=== PATIENT | male | born 1945 | race Caucasian/White ===

== ENCOUNTER 2018-03-14 17:55 | Observation (INO) ==
[2018-03-14] MEDS ORDERED: Iohexol 350 MG/ML 100 ML Vial (for Cath Lab) IVCONTRAST ONE (21:54)
[2018-03-14] MEDS ORDERED: Iohexol 350 MG/ML 50 ML Vial (for Cath Lab) IVCONTRAST ONE (21:54)
[2018-03-15 01:03] LABS: Troponin I 0.29 ng/mL (0.02-0.05)
[2018-03-15 07:15] LABS: Troponin I 1.54 ng/mL (0.02-0.05)
[2018-03-15] MEDS ORDERED: Sod Chloride 0.9% Inj 1,000 ML IV.SIG ONE (07:25)
[2018-03-15] MEDS ORDERED: Heparin 10,000 UNITS/10 ML Vial (for IV use) IV.PUSH STA (07:33)
[2018-03-15 08:13] LABS: Hematocrit 45.5 % (39.0-51.0); Mean Corpuscular HGB Conc 35.1 % (32.0-36.0); Mean Corpuscular Hemoglobin 32.3 pg (27.0-34.0); Mean Corpuscular Volume 92.1 fL (80.0-100.0); Mean Platelet Volume 8.3 fL (7.0-11.0); Platelet Count 155 th/mm3 (150-450); Red Blood Count 4.94 mil/mm3 (4.50-5.90); Red Cell Distribution Width 13.9 % (11.6-17.2); White Blood Count 8.2 th/mm3 (4.0-11.0)
[2018-03-15] MEDS: Aspirin 325 MG Tablet PO SCH (08:31)
[2018-03-15] MEDS: Metoprolol Tartrate 25 MG Tablet PO SCH ×2 (08:32→21:20)
[2018-03-15 08:43] LABS: Activated Partial Thrombo Time 27.4 sec (24.3-30.1); INR 1.1 Ratio
[2018-03-15] MEDS: Heparin Drip 25,000 UNIT/250 ML BAG IV.CONT PRN (09:30)
[2018-03-15 12:13] LABS: Chol/HDL Ratio 2.97 Ratio
[2018-03-15] MEDS: Sod Chloride 0.9% Inj 1,000 ML IV.CONT SCH ×2 (12:16→19:51)
[2018-03-15] MEDS ORDERED: Heparin 10,000 UNITS/10 ML Vial (for IV use) IV.PUSH PRN ×2 (13:33)
--- NOTE | 2018-03-15 16:15 | ECG ---
Date Performed: 03/15/2018 Time Performed: 00:11:46 PTAGE: 72 years EKG: Sinus rhythm WITH OCCASIONAL VENTRICULAR PREMATURE COMPLEXES Since the previous tracing, no significant change no kimberly BORDERLINE ECG NO PREVIOUS TRACING DOCTOR: Germán Miranda Interpretating Date/Time 03/15/2018 16:13:11
--- NOTE | 2018-03-15 16:16 | ECG ---
Date Performed: 03/15/2018 Time Performed: 05:37:24 PTAGE: 72 years EKG: SINUS BRADYCARDIA Since the previous tracing, no significant change noted BORDERLINE ECG PREVIOUS TRACING : 03/15/2018 00.11 DOCTOR: Germán Miranda Interpretating Date/Time 03/15/2018 16:13:21
--- NOTE | 2018-03-15 16:57 | P.HPIM ---
History of Present Illness Primary Care Physician: Jalen Osorio MD Chief Complaint: Chest pain History of Present Illness: Mt. Zimmerman is a 72 y/o male with hypertension and hypothyroidism. He presented [place] [facility] [place] with complaints of acute onset chest pain that started 45 minutes prior to arrival in the ER while carrying some shingles onto a roof. His chest pain was described as a pressure-like sensation in the mid chest and radiated to the left arm associated with left arm numbness and tingling, which lasted for about 15-20 minutes. He reported some diaphoresis but he was already sweating from working outside. When the pain occurred and noted that he took a break for a while and the pain lessened but did not completely go away until he arrived to the ED but it was gone completely before he received any medications in the ED. No previous hx of cardiac issues. Denies any cough or shortness of breath, no fever chills or night sweats. In the ED in he had serial CE checked which noted an elevation in his troponin from 0.29 to 1.54. Pt was started on Nitro ointment and Heparin gtt and transferred to [facility] for Cardiac consultation. Pt had ASA, Lipitor, and Metoprolol added to his regimen. Past Medical Hx: Asthma HTN CKD, stage 3 Hypothyroidism Past Surgical Hx: Spinal surgery after a fall many years ago Family Hx: Noncontributory Social Hx: Denies any tobacco use Rare alcohol or illicit drug use Pt uses CBD oil for joint pain Pt worked in construction - Diagnosis (1) Chest pain (2) Elevated troponin (3) HTN (hypertension) (4) Hypothyroidism Review of Systems Constitutional: Denies chills, Denies fever(s) Eyes: Denies double vision, Denies loss of vision Ears, Nose, Mouth, and Throat: Denies dizziness, Denies nasal congestion Cardiovascular: Reports chest pain, Denies rapid, pounding, or irregular heartbeat, Denies shortness of breath Respiratory: Denies chest congestion, Denies cough Gastrointestinal: Denies abdominal pain, Denies loose stools, Denies nausea, Denies vomiting Genitourinary: Denies urinary frequency, Denies urinary incontinence Musculoskeletal: Denies back pain Skin/Breast: Denies rash Neurologic: Denies confusion, Denies dizziness, Denies tingling/numbness/ burning sensations PMFSH - History History Provided By: Patient - Medical History Medical History: Medical History (Last Updated 03/14/18 @ 18:10 by Kathryn Aggarwal RN) Hypertension Hypothyroidism - Surgical History Surgical History: Surgical History (Last Updated 03/14/18 @ 18:10 by Kathryn Aggarwal RN) History of back surgery - Tobacco History Second Hand Smoke Exposure: No Smoking Status: Never smoker - Alcohol History How Often Do You Have a Drink Containing Alcohol: Never - Substance Use History Substance History: No History of Abuse Medications and Allergies Allergies Allergy/AdvReac Type Severity Reaction Status Date / Time No Known Allergies Allergy Unverified 03/14/18 18:05 Home Medications Medication Instructions Recorded Confirmed Type levothyroxine [Synthroid] 175 mcg PO DAILY 03/14/18 03/15/18 History losartan 25 mg PO DAILY 03/15/18 03/15/18 History Active Medications: Active Medications Aspirin (Aspirin) 325 mg PO DAILY [facility] Last Admin: 03/15/18 08:31 Dose: 325 mg Atorvastatin Calcium (Lipitor) 20 mg PO DAILY [facility] Last Admin: 03/15/18 08:31 Dose: 20 mg Heparin Sodium (Porcine) (Heparin Inj) 2,500 units IV.PUSH UNSCH PRN PRN Reason: aPTT 25-39 Heparin Sodium (Porcine) (Heparin Inj) 5,000 units IV.PUSH UNSCH PRN PRN Reason: aPTT < 25 Sodium Chloride (Ns Inj) 1,000 mls @ 100 mls/hr IV.CONT .Q10H [facility] Last Admin: 03/15/18 12:16 Dose: 100 mls/hr Heparin Sodium/Dextrose (Heparin/D5w 25,000 U/250 Ml) 25,000 unit in 250 mls @ 0 mls/hr IV.CONT TITRATE PRN; Protocol PRN Reason: Per Protocol Last Admin: 03/15/18 09:30 Dose: 12 units/hr, 0.12 mls/hr Levothyroxine Sodium (Synthroid) 100 mcg PO DAILY@0600 [facility] Levothyroxine Sodium (Synthroid) 75 mcg PO DAILY@0600 [facility] Metoprolol Tartrate (Lopressor) 12.5 mg PO BID [facility] Last Admin: 03/15/18 08:32 Dose: Not Given Nitroglycerin (Nitro-Bid 2% Oint) 0.5 inch TOPICAL Q6HR [facility] Last Admin: 03/15/18 12:19 Dose: 0.5 inch Ondansetron HCl (Zofran Inj) 4 mg IV.PUSH Q6H PRN PRN Reason: NAUSEA OR VOMITING Exam Vital signs: Vital Signs 03/15/18 00:00 03/15/18 08:00 03/15/18 11:16 Temperature 96.2 F L 97.2 F L 98.0 F Pulse Rate 58 L 47 L 50 L Respiratory Rate 18 18 18 Blood Pressure 127/68 137/58 L 154/75 H Pulse Oximetry 96 100 97 03/15/18 12:00 03/15/18 15:27 Temperature 98.8 F 98.2 F Pulse Rate 51 L Respiratory Rate 18 18 Blood Pressure 164/73 H 129/76 Pulse Oximetry 97 98 Intake & Output 03/14/18 03/15/18 03/15/18 18:59 06:59 18:59 Intake Total 480 / 480 Output Total 350 / 350 200 / 200 Balance 130 / 130 -200 / -200 Weight 103.9 kg Intake: Oral 480 / 480 Output: Urine 350 / 350 200 / 200 Narrative: GENERAL: NAD, AAOx3 SKIN: Warm and dry. HEENT: Atraumatic. Normocephalic. Pupils equal and round. No scleral icterus. No injection or drainage. No nasal bleeding or discharge. Mucous membranes pink and moist. NECK: Trachea midline. No JVD. CARDIO: Regular rate and rhythm. RESP: No accessory muscle use. Clear to auscultation. Breath sounds equal bilaterally. ABD: Abdomen soft, non-tender, nondistended. Hepatic and splenic margins not palpable. EXT: Extremities without clubbing, cyanosis, or edema. No obvious deformities. NEURO: Awake and alert. No obvious cranial nerve deficits. Motor grossly within normal limits. Five out of 5 muscle strength in the arms and legs. Normal speech. PSYCHIATRIC: Appropriate mood and affect; insight and judgment normal. Results - Labs CBC & Chem 7: 03/17/18 04:30 03/16/18 05:59 Labs: Short CBC 03/15/18 Range/Units 06:30 WBC 8.2 (4.0-11.0) th/mm3 Hgb 16.0 (13.0-17.0) gm/dL Hct 45.5 (39.0-51.0) % Plt Count 155 (150-450) th/mm3 Cardiac Enzymes 03/15/18 03/15/18 Range/Units 00:32 06:30 Total Creatine Kinase 141 189 (39-308) U/L Troponin I 0.29 H 1.54 H* (0.02-0.05) ng/mL Caprini VTE Risk Assessment Caprini VTE Risk Assessment: Moderate/High Risk (score >= 2) Caprini Risk Assessment Model: Point Value = 1 Point Value = 2 Point Value = 3 Point Value = 5 Age 41-60 Minor surgery BMI > 25 kg/m2 Swollen legs Varicose veins or History of unexplained or recurrent spontaneous Oral contraceptives or hormone replacement Sepsis (< 1 month) Serious lung disease, including pneumonia (< 1 month) Abnormal pulmonary function Acute myocardial infarction Congestive heart failure (< 1 month) History of inflammatory bowel disease Medical patient at bed rest Age 61-74 Arthroscopic surgery Major open surgery (> 45 min) Laparoscopic surgery (> 45 min) Malignancy Confined to bed (> 72 hours) Immobilizing plaster cast Central venous access Age >= 75 History of VTE Family history of VTE Factor V Leiden Prothrombin [id number] Lupus anticoagulant Anticardiolipin antibodies Elevated serum homocysteine Heparin-induced thrombocytopenia Other congenital or acquired thrombophilia Stroke (< 1 month) Elective arthroplasty Hip, pelvis, or leg fracture Acute spinal cord injury (< 1 month) Prophylaxis Regimen: Total Risk Factor Score Risk Level Prophylaxis Regimen 0-1 Low Early ambulation 2 Moderate Order ONE of the following: *Sequential Compression Device (SCD) *Heparin 5000 units SQ BID 3-4 Higher Order ONE of the following medications: *Heparin 5000 units SQ TID *Enoxaparin/Lovenox 40 mg SQ daily (WT < 150 kg, CrCl > 30 mL/min) *Enoxaparin/Lovenox 30 mg SQ daily (WT < 150 kg, CrCl > 10-29 mL/min) *Enoxaparin/Lovenox 30 mg SQ BID (WT < 150 kg, CrCl > 30 mL/min) AND/OR *Sequential Compression Device (SCD) 5 or more Highest Order ONE of the following medications: *Heparin 5000 units SQ TID (Preferred with Epidurals) *Enoxaparin/Lovenox 40 mg SQ daily (WT < 150 kg, CrCl > 30 mL/min) *Enoxaparin/Lovenox 30 mg SQ daily (WT < 150 kg, CrCl > 10-29 mL/min) *Enoxaparin/Lovenox 30 mg SQ BID (WT < 150 kg, CrCl > 30 mL/min) AND *Sequential Compression Device (SCD) Assessment and Plan - Assessment (1) Chest pain Code(s): R07.9 - Chest pain, unspecified Status: Acute Plan: Chest pain Elevated troponin - Pt is a 72 y/o male with hypertension and hypothyroidism. - He presented to the ED [place] [facility] [place] with complaints of acute onset chest pain that started 45 minutes prior to arrival in the ER while carrying some shingles onto a roof. His chest pain was described as a pressure-like sensation in the mid chest and radiated to the left arm associated with left arm numbness and tingling, which lasted for about 15-20 minutes. He reported some diaphoresis but he was already sweating from working outside. When the pain occurred and noted that he took a break for a while and the pain lessened but did not completely go away until he arrived to the ED but it was gone completely before he received any medications in the ED. No previous hx of cardiac issues. - In the ED in he had serial CE checked which noted an elevation in his troponin from 0.29 to 1.54. - Pt was started on Nitro ointment and Heparin gtt and transferred to [facility] for Cardiac consultation. - Pt had ASA, Lipitor, and Metoprolol added to his regimen. - Cardiology is consulted and pt is planned for [facility] tomorrow - Check lipid panel and labs in AM - Telemetry - NPO after MN - Supportive care - Further recommendations as the case develops HTN - Home med held - Pt started on a BB - Monitor Hypothyroidism - Home meds resumed (2) Elevated troponin Code(s): R74.8 - Abnormal levels of other serum enzymes Status: Acute (3) HTN (hypertension) Code(s): I10 - Essential (primary) hypertension Status: Acute (4) Hypothyroidism Code(s): E03.9 - Hypothyroidism, unspecified Status: Acute - Attending Attestation Patient examined. Assessment and plan formulated with Bri Qureshi PA-C. I agree with the above. H&P: Quality - VTE Deep Vein Thrombosis/Pulmonary Embolism Present on Admission: No
[2018-03-15] MEDS ORDERED: Acetaminophen 325 MG Tablet PO PRN (21:37)
[2018-03-16] MEDS: Levothyroxine 100 MCG Tablet PO SCH (05:49)
[2018-03-16] MEDS: Levothyroxine 75 MCG Tablet PO SCH (05:50)
[2018-03-16] MEDS: Heparin Drip 25,000 UNIT/250 ML BAG IV.CONT PRN (05:55)
[2018-03-16 06:50] LABS: Baso % (Auto) 0.3 % (0.0-2.0); Eos # (Auto) 0.2 th/mm3 (0.0-0.4); Eos % (Auto) 2.4 % (0.0-4.0); Hematocrit 45.6 % (39.0-51.0); Hemoglobin 15.8 gm/dL (13.0-17.0); Lymph # (Auto) 2.9 th/mm3 (1.0-4.8); Mean Corpuscular HGB Conc 34.7 % (32.0-36.0); Mean Corpuscular Hemoglobin 32.2 pg (27.0-34.0); Mean Corpuscular Volume 92.7 fL (80.0-100.0); Mean Platelet Volume 7.5 fL (7.0-11.0); Mono # (Auto) 0.5 th/mm3 (0.0-0.9); Mono % (Auto) 5.8 % (0.0-8.0); Neut # (Auto) 5.3 th/mm3 (1.8-7.7); Neut % (Auto) 59.5 % (16.0-70.0); Platelet Count 132 th/mm3 (150-450); Red Blood Count 4.92 mil/mm3 (4.50-5.90); Red Cell Distribution Width 14.3 % (11.6-17.2); White Blood Count 8.9 th/mm3 (4.0-11.0)
[2018-03-16 07:21] LABS: Anion Gap 7 meq/L (5-15); Aspartate Aminotransferase 28 U/L (15-37); Blood Urea Nitrogen 12 mg/dL (7-18); Calcium 7.6 mg/dL (8.5-10.1); Carbon Dioxide 25.9 meq/L (21.0-32.0); Chloride 110 meq/L (98-107); Cholesterol 148 mg/dL (120-200); Glomerular Filtration Rate 58 mL/min (>89); Glucose,Random 93 mg/dL (74-106); Potassium 4.2 meq/L (3.5-5.1); Sodium 143 meq/L (136-145); Triglycerides 118 mg/dL (42-150)
[2018-03-16 07:24] LABS: Alanine Aminotransferase 40 U/L (12-78); Alkaline Phosphatase 47 U/L (45-117); Chol/HDL Ratio 4.39 Ratio; HDL Cholesterol 33.7 mg/dL (40.0-60.0); LDL Cholesterol,Calculated 91 mg/dL (0-99); Total Protein 6.9 g/dL (6.4-8.2)
--- NOTE | 2018-03-16 07:42 | P.CONCA ---
History of Present Illness Primary Care Provider: Jalen Osorio MD Family Provider: Jalen Osorio MD Chief Complaint: Chest pain History of Present Illness: 72-year-old male with past medical history of HTN, hypothyroidism who presented for chest pain. The patient states that he was working in the yard and around the house doing heavy lifting lifting some shingles. He developed midsternal chest pain that radiated to his left arm with numbness and tingling. Lasted 15 20 minutes and did not go away completely rest so he presented to the ED. EKG did not demonstrate any ischemic changes. Troponin 0.02->0.29->1.54. Patient started on heparin GTT and transferred to [facility]. Review of Systems All other systems reviewed negative except as stated in [facility] - History History Provided By: Patient - Medical History Medical History: Medical History (Last Updated 03/14/18 @ 18:10 by Kathryn Aggarwal RN) Hypertension Hypothyroidism - Surgical History Surgical History: Surgical History (Last Updated 03/14/18 @ 18:10 by Kathryn Aggarwal RN) History of back surgery - Tobacco History Second Hand Smoke Exposure: No Smoking Status: Never smoker - Alcohol History How Often Do You Have a Drink Containing Alcohol: Never - Substance Use History Substance History: No History of Abuse Medications and Allergies Allergies Allergy/AdvReac Type Severity Reaction Status Date / Time No Known Allergies Allergy Unverified 03/14/18 18:05 Home Medications Medication Instructions Recorded Confirmed Type levothyroxine [Synthroid] 175 mcg PO DAILY 03/14/18 03/15/18 History losartan 25 mg PO DAILY 03/15/18 03/15/18 History Active Medications: Active Medications Acetaminophen (Tylenol) 650 mg PO Q6H PRN PRN Reason: MILD PAIN (PAIN SCALE 1 TO 5) Aspirin (Aspirin) 325 mg PO DAILY [facility] Last Admin: 03/15/18 08:31 Dose: 325 mg Atorvastatin Calcium (Lipitor) 20 mg PO DAILY [facility] Last Admin: 03/15/18 08:31 Dose: 20 mg Heparin Sodium (Porcine) (Heparin Inj) 2,500 units IV.PUSH UNSCH PRN PRN Reason: aPTT 25-39 Heparin Sodium (Porcine) (Heparin Inj) 5,000 units IV.PUSH UNSCH PRN PRN Reason: aPTT < 25 Sodium Chloride (Ns Inj) 1,000 mls @ 100 mls/hr IV.CONT .Q10H [facility] Last Infusion: 03/16/18 03:39 Dose: Infused Heparin Sodium/Dextrose (Heparin/D5w 25,000 U/250 Ml) 25,000 unit in 250 mls @ 0 mls/hr IV.CONT TITRATE PRN; Protocol PRN Reason: Per Protocol Last Admin: 03/16/18 05:55 Dose: 12 units/hr, 0.12 mls/hr Levothyroxine Sodium (Synthroid) 100 mcg PO DAILY@0600 [facility] Last Admin: 03/16/18 05:49 Dose: 100 mcg Levothyroxine Sodium (Synthroid) 75 mcg PO DAILY@0600 [facility] Last Admin: 03/16/18 05:50 Dose: 75 mcg Metoprolol Tartrate (Lopressor) 12.5 mg PO BID [facility] Last Admin: 03/15/18 21:20 Dose: 12.5 mg Nitroglycerin (Nitro-Bid 2% Oint) 0.5 inch TOPICAL Q6HR [facility] Last Admin: 03/16/18 05:44 Dose: 0.5 inch Ondansetron HCl (Zofran Inj) 4 mg IV.PUSH Q6H PRN PRN Reason: NAUSEA OR VOMITING Last Admin: 03/15/18 21:20 Dose: 4 mg Exam Vital signs: Vital Signs 03/15/18 08:00 03/15/18 11:16 03/15/18 12:00 Temperature 97.2 F L 98.0 F 98.8 F Pulse Rate 47 L 50 L Respiratory Rate 18 18 18 Blood Pressure 137/58 L 154/75 H 164/73 H Pulse Oximetry 100 97 97 03/15/18 13:00 03/15/18 15:27 03/15/18 16:20 Temperature 98.2 F Pulse Rate 49 L 51 L 45 L Respiratory Rate 18 Blood Pressure 129/76 Pulse Oximetry 98 03/15/18 20:00 03/15/18 23:53 03/16/18 01:32 Temperature 98.7 F Pulse Rate 81 51 L 54 L Respiratory Rate 19 19 Blood Pressure 162/82 H 171/74 H Pulse Oximetry 98 98 03/16/18 04:00 Temperature Pulse Rate 53 L Respiratory Rate 22 Blood Pressure 149/70 H Pulse Oximetry 98 Intake & Output 03/15/18 03/16/18 03/16/18 18:59 06:59 18:59 Intake Total 240 / 240 2610 / 2610 Output Total 200 / 200 600 / 600 Balance 40 / 40 2009 Weight 229 lb 4.492 oz Intake: IV 2250 / 2250 Heparin/D5W 25,000 U/250 mL 25, 250 / 250 000 unit In 250 ml @ Per Protocol IV.CONT TITRATE PRN Rx #:[id number] NS Inj 1,000 ML @ 100 mls/hr IV 1000 / 1000 .CONT .Q10H [facility] Rx#:[id number] Oral 240 / 240 360 / 360 Output: Urine 200 / 200 600 / 600 Other: # Voids 1 Narrative: GENERAL: Well-developed well-nourished. In no acute distress. NECK: No carotid bruits. No JVD. CARDIOVASCULAR: Regular rate and rhythm. No murmur appreciated. RESPIRATORY: No accessory muscle use. Clear to auscultation. Breath sounds equal bilaterally. MUSCULOSKELETAL: No clubbing or cyanosis. No edema. NEUROLOGICAL: Awake and alert. Normal speech. Results 03/16/18 05:59 03/16/18 05:59 Cardiac Enzymes 03/16/18 Range/Units 05:59 AST 28 (15-37) U/L Coagulation 03/15/18 03/15/18 03/15/18 Range/Units 08:00 17:20 22:34 PT 11.0 (9.8-11.6) sec APTT 27.4 48.3 H D 47.8 H (24.3-30.1) sec 03/16/18 Range/Units 05:59 PT (9.8-11.6) sec APTT 57.5 H D (24.3-30.1) sec Lipids 03/15/18 03/16/18 Range/Units 11:35 05:59 Triglycerides 92 118 (42-150) mg/dL Cholesterol 107 L 148 (120-200) mg/dL HDL Cholesterol 36.0 L 33.7 L (40.0-60.0) mg/dL Cholesterol/HDL Ratio 2.97 4.39 Ratio CBC 03/15/18 03/16/18 Range/Units 06:30 05:59 WBC 8.2 8.9 (4.0-11.0) th/mm3 RBC 4.94 4.92 (4.50-5.90) mil/mm3 Hgb 16.0 15.8 (13.0-17.0) gm/dL Hct 45.5 45.6 (39.0-51.0) % Plt Count 155 132 L (150-450) th/mm3 Neut # (Auto) 5.3 (1.8-7.7) th/mm3 Lymph # (Auto) 2.9 (1.0-4.8) th/mm3 [place] # (Auto) 0.5 (0.0-0.9) th/mm3 Eos # (Auto) 0.2 (0.0-0.4) th/mm3 Baso # (Auto) 0.0 (0.0-0.2) th/mm3 Comprehensive Metabolic Panel 03/16/18 Range/Units 05:59 Sodium 143 (136-145) meq/L Potassium 4.2 (3.5-5.1) meq/L Chloride 110 H (98-107) meq/L Carbon Dioxide 25.9 (21.0-32.0) meq/L BUN 12 (7-18) mg/dL Creatinine 1.23 (0.60-1.30) mg/dL Calcium 7.6 L D (8.5-10.1) mg/dL AST 28 (15-37) U/L ALT 40 (12-78) U/L Alkaline Phosphatase 47 (45-117) U/L Total Protein 6.9 D (6.4-8.2) g/dL Albumin 3.0 L D (3.4-5.0) g/dL Intake and Output 03/15/18 03/16/18 03/16/18 22:59 06:59 14:59 Intake Total 1360 / 1360 1250 / 1250 Output Total 300 / 300 300 / 300 Balance 1060 / 1060 950 / 950 Intake: IV 1000 / 1000 1250 / 1250 Heparin/D5W 25,000 U/250 mL 25, 250 / 250 000 unit In 250 ml @ Per Protocol IV.CONT TITRATE PRN Rx #:[id number] NS Inj 1,000 ML @ 100 mls/hr IV 1000 / 1000 .CONT .Q10H [facility] Rx#:[id number] Oral 360 / 360 Output: Urine 300 / 300 300 / 300 Other: # Voids 1 Weight 229 lb 4.492 oz Assessment and Plan - Plan 72-year-old male with past medical history of HTN, hypothyroidism who presented for chest pain NSTEMI: N.p.o. for LHC this afternoon. Stop heparin GTT 90 minutes prior to cath, discussed with RN. Patient has been started on aspirin, statin, beta- edmond. Discussed Condition With: Patient, RN, Dr. Crane - Attending Attestation NSTEMI HTN asa BB heparin gtt NPO LHC 2d echo
[2018-03-16] MEDS: Sod Chloride 0.9% Inj 1,000 ML IV.CONT SCH ×3 (08:44→23:33)
[2018-03-16] MEDS ORDERED: Levothyroxine 50 MCG Tablet PO SCH (09:00)
[2018-03-16] MEDS: Aspirin 325 MG Tablet PO SCH (09:39)
[2018-03-16] MEDS: Metoprolol Tartrate 25 MG Tablet PO SCH ×2 (09:41→21:15)
[2018-03-16] MEDS ORDERED: Heparin/NS PF Inj 1,000 ML ONE (11:25)
[2018-03-16] MEDS ORDERED: fentaNYL Citrate Inj 100 MCG/2 ML Ampul ONE (11:25)
[2018-03-16] MEDS ORDERED: Heparin 10,000 UNITS/10 ML Vial (for IV use) ONE (11:42)
--- NOTE | 2018-03-16 12:54 | CATHPROC ---
Real Time Translation HIS Report Study Information Study Number Admission Scheduled Start Study Start [id number] Mar 14 2018 9:53PM 03/16/2018 Mar 16 2018 11:35AM [place] Service Cardiac Pacer/ICD Admit Source Facility Department Emergency department [facility] - [employer] Operator Physician and Clinical Staff Initial Octaviano Buitrago [employer] Truck Driver Bri Pimentel,NANDO [employer] Truck Driver Kamille Diana RN Other cathlab, cathlab Recorder Dipika Pittman,RT(R) TECH2 Recorder Anderson Cortez,RT(R) Shanda Jefferson,MIXER ATTENDANT TECH2 Procedures Performed Procedure Location (Site) Vessel Name Coronary Angiograms LCA Left Coronary Coronary Angiograms RCA Right Coronary Drug Eluting Inflatio RCA Mid Right Coronary L Heart Cath Wire insertion Radial (right) Radial Art. Equipment Time Bearing Machine Operator Description Size Mfg Part Number Used/Scraped TRANSDUCER, BRIGITTEUWAVE [id number] 11:41 [email or web address] RICHARDS * Used W/TechpointCOCK *[id number] *[id number] 11:41 [employer] BLANKET,WARM AIR CCL * Used *[id number] 11:41 [employer] PACK, CCL CUSTOM * Used *[id number] 11:41 [employer] SUPPORT, ARTERIAL ADULT 46867 *[id number] Used [id number] 11:45 [employer] JL 3.5 DXTERITY CATHETER FR 5 Used *[id number] 11:53 [employer] JR 5.0 DXTERITY CATHETER FR 5 [id number] Used [id number] 12:27 [employer] STENT, 2.75 15MM SCOTT 2.75 15MM Used *[id number] 12:29 [email or web address] 30 RODRI INDEFLATOR Used *[id number] BAND, RADIAL COMPRESSION TR [id number] 12:43 [email or web address] 29CM Used LARGE 29 *[id number] BAND, RADIAL COMPRESSION TR [id number] 12:39 [email or web address] 24CM Used SHORT 24 *[id number] SHEATH, FR6 RADIAL PRELUDE 11:41 [email or web address] FR 6 [id number] Used EASE 11CM [id number] 11:41 [email or web address] WIRE, EXCHANGE 260CM 3MMJ 260CM Used *[id number] 11:41 NAMIC MANIFOLD, 4 PORT * Used *[id number] 12:36 [employer] OMNIPAQUE, 300 MG, 50ML 50ML [id number] Used 11:41 [employer] OMNIPAQUE, 350 MG, 150ML 150ML [id number] Used WIRE, RUNTHROUGH NS FLOPPY [id number] 12:19 [employer] MED[employer] 300CM Used .014 300CM *[id number] Equipment Model, Serial, Lot Number and Expiration Data Description Model Number Serial Number Lot Number Expiration Date STENT, 2.75 15MM SCOTT [id number] 07-06-2019 History: Current Medications Medication Dosage/Unit Route Frequency Last Date/Time Taken Synthroid ASA HEPARIN COZAAR LIPITOR LOPRESSOR NTG Patch History: Allergies Allergy Reaction No Known Allergies History: Risk Factors Family History of Hypertension Dyslipidemia Previous VT Previous Heart Failure Premature CAD Yes No No No No Prior Valve Prior PCI Prior CABG Surgery No No No Cerebrovascular Peripheral Artery Chronic Lung On Dialysis Diabetes Disease Disease Disease No No No No No History: Symptoms/Diagnosis Selection Items Chest pain History: Stress Tests Stress or Imaging Studies Performed No History: Other Disease Selection Items HTN Pericardial effusion History: Other Current Smoker No Labs Hgb (g/dl) Hct (%) RBC (MIL/MM3) WBC (l/cumm) Platelets (thousands) 11.60-17.00 35.00-51.00 4.00-5.90 4.00-11.00 150.00-450.00 15.8 45.6 5.3 8.9 132 Glucose (mg/dl) BUN (mg/dl) Creatinine (mg/dl) BUN:Creatinine (1:x) 74.00-106.00 7.00-18.00 0.50-1.30 10.00-20.00 93 12 1.8 6.7 Na (meq/l) K (meq/l) Cl (meq/l) CO2 (mmol/L) Ca (mg/dl) 136.00-145.00 3.50-5.10 98.00-107.00 21.00-32.00 8.50-10.10 143 4.2 107 27 8.9 PT (sec) PTT (sec) INR (PTT:PT) 9.80-11.60 24.30-30.10 0.90-1.10 10.4 25.4 1 Troponin I (ng/ml) CPK-MB (ng/ML) 0.02-0.05 0.50-3.60 1.5 Not Drawn Medication Medication Total Dose (Bolus/Oral) Medication Total Dosage/Unit 1% XYLOCAINE 5 mL FENTANYL 50 mcg HEPARIN 5000 units NITRO OINTMENT 2 inches NTG (IC) 200 mcg PLAVIX 600 mg VERSED 2 mg Medications (Bolus/Oral) Medication Time Given Dosage/Unit Administered By Reason NITRO OINTMENT 03/16/2018 11:56:49 AM 2 inches cathlab, cathlab Patient arrived on 2 inches NITRO OINTMENT given by cathlab, cathlab via Peripheral IV. Ordered by Octaviano Leonard. located on right araiza FENTANYL 03/16/2018 12:00:10 PM 50 mcg Margarito Bri 50 mcg FENTANYL given in lab by Bri Pimentel, NANDO in Right Antecubital via Peripheral IV. Ordered Octaviano Toussaint. VERSED 03/16/2018 12:03:49 PM 2 mg Adamy, Bri 2 mg VERSED given in lab by Bri Pimentel, NANDO in Right Antecubital via Peripheral IV. Ordered by Octaviano Leonard. 1% XYLOCAINE 03/16/2018 12:04:16 PM 5 mL Octaviano Crane 5 mL 1% XYLOCAINE given in lab by Octaviano Crane in Right Wrist via Subcutaneous. Ordered by Richard Crane. NTG (IC) 03/16/2018 12:09:45 PM 200 mcg Octaviano Crane 200 mcg NTG (IC) given in lab by Octaviano Crane via Intra-arterial. Ordered by Octaviano Crane. HEPARIN 03/16/2018 12:10:26 PM 5000 units Octaviano Crane 5000 units HEPARIN given in lab by Octaviano Crane in Right Radial via Peripheral IV. Ordered by Octaviano Crane. PLAVIX 03/16/2018 12:40:49 PM 600 mg Kamille Diana 600 mg PLAVIX given in lab by Kamille Diana, NANDO via Oral. Ordered by Octaviano Crane. Medication (Drip) Medication Time Given Dosage/Unit Concentration/Unit Diluent (ml) Solutio n ANGIOMAX DRIP 03/16/2018 12:27:52 PM 1.82 mg/kg/hr 250 mg 50 NaCl .9 1.82 mg/kg/hr ANGIOMAX DRIP given in lab by Kamille Diana, NANDO in Right Antecubital via Peripheral I V. Pump/Drip Flow = 36.4 ml/hr using NaCl .9 with a concentration of 250 mg in 50 ml. Ordered by Octaviano Crane. IV Solutions 03/16/2018 11:39:19 AM 0 mL (IV) 500 NaCl .9 Patient arrived on IV Solutions given by cathlab, cathlab in Right Antecubital via Peripheral IV. Pum p/Drip Flow = 20 ml/hr using NaCl .9. Ordered by Octaviano Crane. IV Solutions 03/16/2018 11:39:41 AM 0 mL (IV) 500 NaCl .9 Patient arrived on IV Solutions given by cathlab, cathlab in Left Antecubital via Peripheral IV. Pump /Drip Flow = 20 ml/hr using NaCl .9. Ordered by Octaviano Crane. Initial Case Assessment Cardiovascular HR Rhythm NIBP Chest Pain 55 sr 134/81 0 Edema Present Skin color Skin None Normal Warm Dry Circulatory - Right Pulses Dorsalis Pedis Femoral Radial 2 3 3 Scale (0,1,2,3,4,d) Circulatory - Left Pulses Dorsalis Pedis Femoral Radial 2 3 3 Scale (0,1,2,3,4,d) Neurological State Oriented to time-place- Alert Moves all extremities person Respiration - General Respiration Rate SpO2 (%) (B/min) 18 99 Final Case Assessment Cardiovascular HR Rhythm NIBP Chest Pain 64 Sinus 161/104 0 Edema Present Skin color Skin None Normal Warm Dry Circulatory - Right Pulses Dorsalis Pedis Femoral Radial 2 2 2 Scale (0,1,2,3,4,d) Scale (0,1,2,3,4,d) Neurological State Oriented to time-place- Alert Moves all extremities person Respiration - General Respiration Rate SpO2 (%) O2 (lpm) (B/min) 15 100 2 Chronological Log Time Study Chronological Log 11:20:35 Patient arrived via Bed. 11:21:39 Patient Name, D.O.B, / Armband Verified By R.N. 11:35:46 Presedation assessment performed by [employer] Machine Operator RN. 11:35:55 Allens test performed on the right radial and ulnar artery. 11:35:58 Patient has been NPO for More than 6Hrs. 11:35:58 Skin Breakdown-none per patient Vitals capture started with the following parameters, Patient=Adult, Interval=5 min, Initial Pr mrsxvj=690 mmHg, 11:36:09 Deflation Rate=5 mmHg 11:36:10 Reference ECG taken 11:36:45 HR=52 bpm, PGIV=310/81 mmhg, CgK6=654.0 %, Resp=12 B/min, Pain=0, Brenda=10, Li=2 11:37:49 Patient Warmer Placed on the Table. 11:37:52 Corry Prominences Protected 11:37:54 A # 20 IV was noted in the Antecubital (left). Grade = 0 11:39:10 A # 20 IV was noted in the Antecubital (right). Grade = 0 Patient arrived on IV Solutions given by cathlab, cathlab in Right Antecubital via Peripheral I V. Pump/Drip Flow = 20 11:39:19 ml/hr using NaCl .9. Ordered by Octaviano Crane. Patient arrived on IV Solutions given by cathlab, cathlab in Left Antecubital via Peripheral IV . Pump/Drip Flow = 20 11:39:41 ml/hr using NaCl .9. Ordered by Octaviano Crane. Assessment: Initial Case, HR=55 BPM, Rhythm=sr, NJNR=965/81 mmhg, Chest Pain=0, Edema=None, Col or=Normal, Skin = Warm, Dry Right Pulses: Pro Ped=2, Femoral=3, Radial=3 11:39:47 Left Pulses: Pro Ped=2, Femoral=3, Radial=3 Neurological: State=Alert, Ox3, SOLOMON Respiration: Resp=18 B/min, SpO2=99 % 11:39:48 History and physical on the chart or being dictated. 11:39:54 Right Radial and groin(s) prepped with 2% chlorhexidine, and draped after a 3 min. waiting time. 11:42:35 HR=52 bpm, BSWU=250/80 mmhg, SpO2=99.0 %, Resp=15 B/min, Pain=0, Brenda=10, Li=2 11:46:53 HR=54 bpm, CNFJ=042/79 mmhg, ClC6=179.0 %, Resp=20 B/min, Pain=0, Brenda=10, Li=2 11:49:49 Pressure channel 1 zeroed. 11:50:53 MD called 11:52:25 HR=53 bpm, BRVT=602/78 mmhg, ZqJ4=324.0 %, Resp=10 B/min, Pain=0, Brenda=10, Li=2 11:56:49 HR=53 bpm, UEFD=778/82 mmhg, FxO4=805.0 %, Resp=13 B/min, Pain=0, Brenda=10, Li=2 Patient arrived on 2 inches NITRO OINTMENT given by cathlab, cathlab via Peripheral IV. Ordered by Octaviano Crane. 11:56:49 located on right araiza 11:58:31 MD arrived. 50 mcg FENTANYL given in lab by Bri Pimentel, RN in Right Antecubital via Peripheral IV. Ord ered by Royce 12:00:10 Octaviano. 12:02:27 HR=53 bpm, AZSB=001/72 mmhg, SpO2=94.0 %, Resp=24 B/min, Pain=0, Brenda=10, Li=2 12:03:49 2 mg VERSED given in lab by Bri Pimentel, NANDO in Right Antecubital via Peripheral IV. Ord ered by Octaviano Crane. Time Out. Correct patient, correct procedure, correct physician, labs, allergies, and equipment verified with laboratory asst 12:03:50 team present. Fire risk assesment completed (see hard stop sheet for coding). Time Out Conc urred by and individual staff in procedure. 12:04:13 Case Start 12:04:16 5 mL 1% XYLOCAINE given in lab by Octaviano Crane in Right Wrist via Subcutaneous. Ordered b y Octaviano Crane. 12:07:35 HR=49 bpm, FUJW=601/73 mmhg, SpO2=93.0 %, Resp=12 B/min, Pain=0, Brenda=10, Li=2 12:08:43 Access site was Right Radial Artery . A SHEATH, FR6 RADIAL PRELUDE EASE 11CM FR 6 was advanced into the Radial (right) using the Perc utaneous 12:09:02 technique. 12:09:45 200 mcg NTG (IC) given in lab by Octaviano Crane via Intra-arterial. Ordered by Zahraa Crane en. 12:10:26 5000 units HEPARIN given in lab by Octaviano Crane in Right Radial via Peripheral IV. Ordere d by Octaviano Crane. A JR 5.0 DXTERITY CATHETER FR 5 was advanced over a wire. OMNIPAQUE, 350 MG, 150ML 150ML was us ed for 12:11:08 injections. 12:11:51 HR=50 bpm, DOSH=180/76 mmhg, SpO2=96.0 %, Resp=19 B/min, Pain=0, Brenda=10, Li=2 Recorded Pressure: Ao, HR=49, Condition=Condition 1 12:12:03 (Aorta) Ao 132/70/94 12:13:01 The RCA was injected and visualized at various angles. OMNIPAQUE, 350 MG, 150ML 150ML used . 12:13:47 Catheter was removed A JL 3.5 DXTERITY CATHETER FR 5 was advanced over a wire. OMNIPAQUE, 350 MG, 150ML 150ML was us ed for 12:14:23 injections. 12:15:20 The LCA was injected and visualized at various angles. OMNIPAQUE, 350 MG, 150ML 150ML used . 12:16:52 HR=60 bpm, DQLC=333/83 mmhg, SpO2=98.0 %, Resp=20 B/min, Pain=0, Brenda=10, Li=2 12:17:54 Catheter was removed A H-STICK GUIDE CATHETER FR 6 was advanced over a wire. OMNIPAQUE, 350 MG, 150ML 150ML was used for 12:19:33 injections. 12:21:55 HR=68 bpm, ACZX=528/81 mmhg, YiY1=720.0 %, Resp=17 B/min, Pain=0, Brenda=10, Li=2 12:24:15 A WIRE, RUNTHROUGH NS FLOPPY .014 300CM 300CM was inserted via Radial (right). 12:27:29 HR=59 bpm, YEGF=147/82 mmhg, SpO2=99.0 %, Resp=18 B/min, Pain=0, Brenda=10, Li=2 12:27:35 Interventional wire has crossed the lesion 1.82 mg/kg/hr ANGIOMAX DRIP given in lab by Kamille Diana, RN in Right Antecubital via Periph eral IV. Pump/Drip 12:27:52 Flow = 36.4 ml/hr using NaCl .9 with a concentration of 250 mg in 50 ml. Ordered by Minor, Step hen. A STENT, 2.75 15MM SCOTT 2.75 15MM was advanced through a H-STICK GUIDE CATHETER FR 6 over a WIR E, 12:28:09 RUNTHROUGH NS FLOPPY .014 300CM 300CM. A STENT, 2.75 15MM SCOTT 2.75 15MM was deployed using a 30 RODRI INDEFLATOR at 16 atmospheres for 10 seconds 12:28:52 in the RCA Mid. 12:29:22 The RCA was injected and visualized at various angles. OMNIPAQUE, 350 MG, 150ML 150ML used . 12:30:39 Re-inflated the stent balloon in the RCA Mid to 6 RODRI for 30 seconds. 12:31:57 HR=67 bpm, WKKJ=856/87 mmhg, FkY3=583.0 %, Resp=16 B/min, Pain=0, Brenda=10, Li=2 12:33:04 Delivery device removed 12:35:59 Wire removed 12:36:10 The RCA was injected and visualized at various angles. OMNIPAQUE, 300 MG, 50ML 50ML used. 12:36:41 A WIRE, EXCHANGE 260CM 3MMJ 260CM was inserted via Radial (right). 12:36:51 Catheter was removed 12:36:53 Wire removed 12:36:58 Case End (Physician broke scrub) 12:37:41 HR=66 bpm, AVWF=972/104 mmhg, DrL6=728.0 %, Resp=20 B/min, Pain=0, Brenda=10, Li=2 Radial Compression Device Used. 15 mLs of air placed in BAND, RADIAL COMPRESSION TR SHORT 24 24 CM. Affected 12:39:06 hand 98 % O2 saturation. 12:39:19 No case complications noted. 12:39:22 Cine recording checked. 12:39:29 Implantable Device card placed in patient's chart. 12:39:32 A Left Heart Cath was performed. Assessment: Final Case, HR=64 BPM, Rhythm=Sinus, BNGZ=776/104 mmhg, Chest Pain=0, Edema=None, Color=Normal, Skin = Warm, Dry 12:39:39 Right Pulses: Pro Ped=2, Femoral=2, Radial=2 Neurological: State=Alert, Ox3, SOLOMON Respiration: Resp=15 B/min, QlH0=355 %, O2=2 lpm 12:40:49 600 mg PLAVIX given in lab by Kamille Diana, NANDO via Oral. Ordered by Octaviano Crane. 12:41:59 HR=60 bpm, LMCP=380/89 mmhg, MiO9=926.0 %, Resp=12 B/min, Pain=0, Brenda=10, Li=2 12:43:00 Bedside Report will be given. 12:47:00 OX=101 bpm, IZSH=592/89 mmhg, SpO2=98.0 %, Resp=20 B/min, Pain=0, Brenda=10, Li=2 Radial Compression Device Used. 10 mLs of air placed in BAND, RADIAL COMPRESSION TR LARGE 29 2 9CM. Affected 12:50:30 hand 98 % O2 saturation. Second radial band applied. 12:54:30 Patient moved to stretcher End Study - Contrast Media Used In Study Contrast Total Opened (mL) Total Used (mL) Total Wasted (mL) Omnipaque 200 150 50 End Study - Maximum Contrast Load Max Contrast Load (mL) 277.8 End Study - Radiation Exposure Fluoro Time (minutes) 5.1 End Study - Patient Disposition Complications Transferred To Interventional Outcome No Telemetry Bed successful
--- NOTE | 2018-03-16 13:18 | MA ---
cc: Octaviano Crane MD DATE: 03/16/2018 DATE OF PROCEDURE: 03/16/2018 INDICATION: ST elevation myocardial infarction. PROCEDURES PERFORMED: 1. Fluoroscopy with interpretation. 2. Coronary angiography. 3. Percutaneous coronary intervention with drug-eluting stent to the mid right coronary artery. METHOD: Risks, benefits, and alternatives discussed with the patient. The patient understood and consented to the procedure. The patient was brought to the catheterization lab and positioned on the table. The right wrist was prepped and draped in sterile fashion. The right wrist was anesthetized with 2% lidocaine. The right radial artery was cannulated. A 6-Belizean 7 cm sheath was placed without difficulty. CORONARY ANGIOGRAPHY: 1. Left main coronary artery is angiographically normal. 2. Left anterior descending coronary artery is angiographically normal. Small diagonal branch has minor luminal irregularities. 3. Circumflex is a nondominant vessel, gives rise to an obtuse marginal branch which is widely patent. There is a ramus intermedius branch with a 40% proximal stenosis, but otherwise ANA 3 flow. 4. Right coronary has a discrete mid stenosis at the bifurcation of a small acute marginal branch 80%. There is ANA 3 flow. Posterior descending posterolateral branch widely patent, is right dominant. PERCUTANEOUS CORONARY INTERVENTION: Right coronary was selectively engaged with a 6-Belizean hockey stick guide catheter to the anterior takeoff. This is a slightly difficult to engage selectively in the coronary itself. We were able to navigate a wire and pull the guide catheter into the right coronary artery. A 0.0143 300 cm Terumo Runthrough wire was navigated down the distal posterior descending branch. A 2.75 x 15 mm RX Resolute Ronnell stent was advanced down to the mid segment and deployed. Repeat angiography showed no significant residual stenosis, ANA 3 flow. The wire was removed, guide catheter removed, hemoBand applied. Angiomax was administered through its entire procedure to maintain appropriate anticoagulation. CONCLUSIONS: 1. Single vessel coronary disease involving the mid right coronary artery. 2. Successful percutaneous coronary intervention with drug-eluting stent to the mid right coronary artery. PLAN: The patient will be monitored closely for any postprocedural complications. Hopefully, this will transit well with symptomatic improvement. We will initiate guideline directed medical therapy which includes beta edmond, aspirin, Plavix, angiotensive receptor II edmond, and long-acting nitrate. We will followup on 2D echocardiogram. Anticipate discharge tomorrow. Octaviano Crane MD [facility]/ , 12:47 PM , 12:54 PM LENARD
--- NOTE | 2018-03-16 15:42 | P.PNIM ---
Subjective Interval history: No new complaints. Pt denies chest pain. Physical Exam Vital signs: 03/16/18 01:32 03/16/18 04:00 03/16/18 08:00 Temperature 98.3 F Pulse Rate 54 L 53 L 51 L Respiratory Rate 22 18 Blood Pressure 149/70 H 156/74 H Pulse Oximetry 98 99 Narrative: GENERAL: This is a well-nourished, well-developed patient, in no apparent distress. CARDIOVASCULAR: Regular rate and rhythm without murmurs, gallops, or rubs. RESPIRATORY: Clear to auscultation. Breath sounds equal bilaterally. No wheezes , rales, or rhonchi. GASTROINTESTINAL: Abdomen soft, non-tender, nondistended. Normal active bowel sounds MUSCULOSKELETAL: Extremities without clubbing, cyanosis, or edema. NEURO: Alert & Oriented x4 to person, place, time, situation. Moves all ext x4 Results - Labs CBC & Chem 7: 03/17/18 04:30 03/16/18 05:59 LDL 91 (03/16) Assessment and Plan - Assessment (1) Chest pain Code(s): R07.9 - Chest pain, unspecified Status: Acute Plan: Chest pain Elevated troponin - Pt is a 72 y/o male with hypertension and hypothyroidism. - [place] [facility] [place] with complaints of acute onset chest pain that started 45 minutes prior to arrival in the ER while carrying some shingles onto a roof. His chest pain was described as a pressure-like sensation in the mid chest and radiated to the left arm associated with left arm numbness and tingling, which lasted for about 15-20 minutes. He reported some diaphoresis but he was already sweating from working outside. When the pain occurred and noted that he took a break for a while and the pain lessened but did not completely go away until he arrived to the ED but it was gone completely before he received any medications in the ED. No previous hx of cardiac issues. - In the ED in he had serial CE checked which noted an elevation in his troponin from 0.29 to 1.54. - Pt had ASA, Lipitor, and Metoprolol added to his regimen. - Pt underwent LHC (03/16/18) with Dr. Octaviano Crane - AMANDA placed at RCA - LDL 91 (03/16) - start plavix 75mg daily - SCD for DVT prophylaxis - supportive care - anticipate d/c to home 03/17/18 HTN - Home med held - Pt started on a BB - Monitor Hypothyroidism - Home meds resumed (2) Elevated troponin Code(s): R74.8 - Abnormal levels of other serum enzymes Status: Acute (3) HTN (hypertension) Code(s): I10 - Essential (primary) hypertension Status: Acute (4) Hypothyroidism Code(s): E03.9 - Hypothyroidism, unspecified Status: Acute
[2018-03-17] MEDS: Levothyroxine 100 MCG Tablet PO SCH (05:36)
[2018-03-17] MEDS: Levothyroxine 75 MCG Tablet PO SCH (05:36)
[2018-03-17 05:47] LABS: Hematocrit 43.1 % (39.0-51.0); Mean Corpuscular HGB Conc 34.7 % (32.0-36.0); Mean Corpuscular Hemoglobin 32.1 pg (27.0-34.0); Mean Corpuscular Volume 92.3 fL (80.0-100.0); Mean Platelet Volume 7.5 fL (7.0-11.0); Platelet Count 133 th/mm3 (150-450); Red Blood Count 4.67 mil/mm3 (4.50-5.90); Red Cell Distribution Width 13.8 % (11.6-17.2); White Blood Count 8.5 th/mm3 (4.0-11.0)
--- NOTE | 2018-03-17 07:30 | P.PNCA ---
Subjective Interval history: No chest pain or shortness of breath. Some bruising with right wrist access site, no pain or numbness. Telemetry overnight with bradycardia into the 40s, no other significant arrhythmias noted. Physical Exam Vital signs: Vital Signs 03/16/18 08:00 03/16/18 12:00 03/16/18 14:00 Temperature 98.3 F 98.3 F Pulse Rate 51 L 52 L 51 L Respiratory Rate 18 18 Blood Pressure 156/74 H 150/79 H Pulse Oximetry 99 99 03/16/18 15:00 03/16/18 16:00 03/16/18 16:40 Temperature 98.3 F Pulse Rate 51 L 62 55 L Respiratory Rate 18 Blood Pressure 139/74 Pulse Oximetry 97 03/16/18 17:00 03/16/18 18:00 03/16/18 19:00 Temperature Pulse Rate 58 L 61 65 Respiratory Rate Blood Pressure Pulse Oximetry 03/16/18 20:00 03/16/18 20:04 03/16/18 21:00 Temperature 98.2 F Pulse Rate 56 L 59 L 62 Respiratory Rate 19 Blood Pressure 141/72 H Pulse Oximetry 98 03/16/18 22:00 03/16/18 23:00 03/17/18 00:00 Temperature Pulse Rate 49 L 51 L 49 L Respiratory Rate Blood Pressure Pulse Oximetry 03/17/18 00:04 03/17/18 01:00 03/17/18 02:00 Temperature 98.2 F Pulse Rate 49 L 49 L 48 L Respiratory Rate 19 Blood Pressure 141/78 H Pulse Oximetry 99 03/17/18 03:00 03/17/18 04:15 03/17/18 04:16 Temperature 98.1 F Pulse Rate 49 L 61 51 L Respiratory Rate 18 Blood Pressure 150/94 H Pulse Oximetry 98 03/17/18 05:00 03/17/18 06:00 03/17/18 07:00 Temperature Pulse Rate 57 L 55 L 55 L Respiratory Rate Blood Pressure Pulse Oximetry Intake & Output 03/16/18 03/17/18 03/17/18 18:59 06:59 18:59 Intake Total 780 / 780 1340 / 1340 120 / 120 Output Total 1500 / 1500 275 / 275 Balance -720 / -720 1065 / 1065 120 / 120 Weight 228 lb 9.91 oz Intake: IV 1000 / 1000 NS Inj 1,000 ML @ 100 mls/hr IV 1000 / 1000 .CONT .Q10H AGNES Rx#:[id number] Oral 480 / 480 340 / 340 120 / 120 Oral Supplement 0 / 0 Anesthesia Amount 300 / 300 Output: Blood Draw 600 / 600 Urine 900 / 900 275 / 275 Other: # Voids 3 Date of Last Bowel Movement 03/16/18 Narrative: GENERAL: Well-developed well-nourished. In no acute distress. NECK: No carotid bruits. No JVD. CARDIOVASCULAR: Regular rate and rhythm. No murmur appreciated. RESPIRATORY: No accessory muscle use. Clear to auscultation. Breath sounds equal bilaterally. MUSCULOSKELETAL: No clubbing or cyanosis. No edema. Right wrist with minimal swelling and ecchymosis, no pain, intact radial and ulnar pulses. NEUROLOGICAL: Awake and alert. Normal speech. Assessment and Plan - Plan 72-year-old male with past medical history of HTN, hypothyroidism who presented for chest pain NSTEMI: [facility] 03/17 with PCI to RCA lesion. Continue on aspirin 81 mg daily, Plavix, statin. Would DC low-dose beta-edmond with significant bradycardia. Hypertension: Resume home losartan. Discharge planning for today. Ideally will get echocardiogram prior to DC. Discussed Condition With: Patient, Dr. Crane - Attending Attestation NSTEMI - PCI AMANDA asa plavix statin arb nitrate DC metoprolol due to bradycardia ok for DC home will obtain outpatient 2d echo
--- NOTE | 2018-03-17 08:45 | P.DS ---
<Lashell Flores W - Last Filed: 03/17/18 11:01> Date of admission: 03/14/18 21:53 Primary care physician: Jalen Osorio MD Attending physician on discharge: Baljit Burton Anticipated date of discharge: 03/17/18 Brief History from admission: Mt. Zimmerman is a 72 y/o male with hypertension and hypothyroidism. He presented to the ED at [facility] on 03/14/18 with complaints of acute onset chest pain that started 45 minutes prior to arrival in the ER while carrying some shingles onto a roof. His chest pain was described as a pressure-like sensation in the mid chest and radiated to the left arm associated with left arm numbness and tingling, which lasted for about 15-20 minutes. He reported some diaphoresis but he was already sweating from working outside. When the pain occurred and noted that he took a break for a while and the pain lessened but did not completely go away until he arrived to the ED but it was gone completely before he received any medications in the ED. No previous hx of cardiac issues. Denies any cough or shortness of breath, no fever chills or night sweats. In the ED in he had serial CE checked which noted an elevation in his troponin from 0.29 to 1.54. Pt was started on Nitro ointment and Heparin gtt and transferred to [facility] for Cardiac consultation. Pt had ASA, Lipitor, and Metoprolol added to his regimen. Past Medical Hx: Asthma HTN CKD, stage 3 Hypothyroidism Past Surgical Hx: Spinal surgery after a fall many years ago Family Hx: Noncontributory Social Hx: Denies any tobacco use Rare alcohol or illicit drug use Pt uses CBD oil for joint pain Pt worked in construction DS: Diagnosis - Discharge Diagnosis (1) NSTEMI (non-ST elevated myocardial infarction) Status: Acute (2) HTN (hypertension) Status: Acute (3) Hypothyroidism Status: Acute DS: Medications - Discharge Medications Prescriptions: atorvastatin 40 mg PO DAILY 30 Days #30 tab clopidogrel [Plavix] 75 mg PO DAILY 30 Days #30 tab isosorbide mononitrate 30 mg PO DAILY@0700 30 Days tab DS: Summary Hospital Course: NSTEMI Chest pain Elevated troponin - Pt is a 72 y/o male with hypertension and hypothyroidism. - He presented to the ED at [facility] on 03/14/18 with complaints of acute onset chest pain that started 45 minutes prior to arrival in the ER while carrying some shingles onto a roof. His chest pain was described as a pressure-like sensation in the mid chest and radiated to the left arm associated with left arm numbness and tingling, which lasted for about 15-20 minutes. He reported some diaphoresis but he was already sweating from working outside. When the pain occurred and noted that he took a break for a while and the pain lessened but did not completely go away until he arrived to the ED but it was gone completely before he received any medications in the ED. No previous hx of cardiac issues. - In the ED in [place] he had serial CE checked which noted an elevation in his troponin from 0.29 to 1.54. - Pt had ASA, Lipitor, and Metoprolol added to his regimen. - Pt underwent LHC (03/16/18) with Dr. Octaviano Crane - AMANDA placed at RCA - LDL 91 (03/16) - start plavix 75mg daily - patient had bradycardia into to 40s through the night, metoprolol DC'd due to bradycardia - SCD for DVT prophylaxis - supportive care - cardiology cleared for DC home, patient to follow up with cardiology after DC and have outpatient Echo HTN -patient unable to tolerate metoprolol due to bradycardia -Resume patient's losartan 25 mg daily - Monitor Hypothyroidism - Home meds resumed - Time Spent with Patient Total time spent providing and/or coordinating discharge services: Greater than 30 minutes - Quality: VTE Deep Vein Thrombosis/Pulmonary Embolism Present on Admission: No Exam Vital signs: Vital Signs 03/16/18 12:00 03/16/18 14:00 03/16/18 15:00 Temperature 98.3 F Pulse Rate 52 L 51 L 51 L Respiratory Rate 18 Blood Pressure 150/79 H Pulse Oximetry 99 03/16/18 16:00 03/16/18 16:40 03/16/18 17:00 Temperature 98.3 F Pulse Rate 62 55 L 58 L Respiratory Rate 18 Blood Pressure 139/74 Pulse Oximetry 97 03/16/18 18:00 03/16/18 19:00 03/16/18 20:00 Temperature Pulse Rate 61 65 56 L Respiratory Rate Blood Pressure Pulse Oximetry 03/16/18 20:04 03/16/18 21:00 03/16/18 22:00 Temperature 98.2 F Pulse Rate 59 L 62 49 L Respiratory Rate 19 Blood Pressure 141/72 H Pulse Oximetry 98 03/16/18 23:00 03/17/18 00:00 03/17/18 00:04 Temperature 98.2 F Pulse Rate 51 L 49 L 49 L Respiratory Rate 19 Blood Pressure 141/78 H Pulse Oximetry 99 03/17/18 01:00 03/17/18 02:00 03/17/18 03:00 Temperature Pulse Rate 49 L 48 L 49 L Respiratory Rate Blood Pressure Pulse Oximetry 03/17/18 04:15 03/17/18 04:16 03/17/18 05:00 Temperature 98.1 F Pulse Rate 61 51 L 57 L Respiratory Rate 18 Blood Pressure 150/94 H Pulse Oximetry 98 03/17/18 06:00 03/17/18 07:00 Temperature Pulse Rate 55 L 55 L Respiratory Rate Blood Pressure Pulse Oximetry Intake & Output 03/16/18 03/17/18 03/17/18 18:59 06:59 18:59 Intake Total 780 / 780 1340 / 1340 120 / 120 Output Total 1500 / 1500 275 / 275 Balance -720 / -720 1065 / 1065 120 / 120 Weight 103.7 kg Intake: IV 1000 / 1000 NS Inj 1,000 ML @ 100 mls/hr IV 1000 / 1000 .CONT .Q10H AGNES Rx#:[id number] Oral 480 / 480 340 / 340 120 / 120 Oral Supplement 0 / 0 Anesthesia Amount 300 / 300 Output: Blood Draw 600 / 600 Urine 900 / 900 275 / 275 Other: # Voids 3 Date of Last Bowel Movement 03/16/18 Narrative: GENERAL: This is a well-nourished, well-developed patient, in no apparent distress. SKIN: Mild ecchymosis noted at right wrist access site CARDIOVASCULAR: Regular rate and rhythm without murmurs, gallops, or rubs. RESPIRATORY: Clear to auscultation. Breath sounds equal bilaterally. No wheezes , rales, or rhonchi. GASTROINTESTINAL: Abdomen soft, non-tender, nondistended. Normal active bowel sounds MUSCULOSKELETAL: Extremities without clubbing, cyanosis, or edema. NEURO: Alert & Oriented x4 to person, place, time, situation. Moves all ext x4 Results Procedures completed during hospitalization: Left heart cath with drug-eluting stent to RCA 03/16/[address] Crane Labs on day of discharge: Labs from last 24 hours 03/17/18 04:30 WBC 8.5 RBC 4.67 Hgb 15.0 Hct 43.1 MCV 92.3 MCH 32.1 MCHC 34.7 RDW 13.8 Plt Count 133 L MPV 7.5 <Baljit Burton - Last Filed: 03/20/18 16:10> Date of admission: 03/14/18 21:53 Primary care physician: Jalen Osorio MD DS: Diagnosis - Discharge Diagnosis (1) Chest pain Status: Acute (2) Elevated troponin Status: Acute (3) HTN (hypertension) Status: Acute (4) Hypothyroidism Status: Acute DS: Summary Hospital Course: Patient examined. Assessment and plan formulated with Lashell Flores PA-C. I agree with the above. - Time Spent with Patient Total time spent providing and/or coordinating discharge services: Discharge Plan - Discharge Order Discharge Orders: Discharge Order (Routine); Ordered 03/17/18 Ordered By: Lashell Flores - Discharge Details Anticipated Discharge Date: 03/17/18 - Physicians Team Primary Care Provider: Jalen Osorio Attending Provider: Baljit Burton Other Providers: Prashanth Lauren, - Rxs /Orders / Referrals /Forms Prescriptions: New aspirin 81 mg Tablet,Delayed Release (Dr/Ec) 81 mg PO DAILY RF: 0 atorvastatin 40 mg Tablet 40 mg PO DAILY 30 Days Qty: 30 RF: 0 clopidogrel [Plavix] 75 mg Tablet 75 mg PO DAILY 30 Days Qty: 30 RF: 0 isosorbide mononitrate 30 mg Tablet Extended Release 24 Hr 30 mg PO DAILY@0700 30 Days RF: 0 Continue levothyroxine [Synthroid] 50 mcg Tablet 175 mcg PO DAILY losartan 25 mg Tablet 25 mg PO DAILY Referrals: Jalen Osorio MD [Primary Care Provider] - See Instructions (follow up in 1 week ) Octaviano Crane MD [Physician] - See Instructions (follow up in 1-2 weeks outpatient echocardiogram) - Discharge Instructions Patient Printed Instructions: Aspirin (By mouth), Isosorbide Mononitrate (By mouth), Atorvastatin (By mouth), Clopidogrel (By mouth), Acute Wound Care (DC), Heart Catheterization (DC), Coronary Intravascular Stent Placement (DC)
[2018-03-17] MEDS ORDERED: Atropine Inj 1 MG/ML Vial IV.PUSH PRN (09:53)
[2018-03-17] MEDS ORDERED: Misc Info for Pharmacy OTHER STA (09:53)
[2018-03-17] MEDS: Sod Chloride 0.9% Inj 1,000 ML IV.CONT SCH (10:57)
--- NOTE | 2018-03-17 16:29 | ECG ---
Date Performed: 03/17/2018 Time Performed: 10:18:36 PTAGE: 72 years EKG: Sinus bradycardia. Inferior T wave changes are nonspecific Borderline ECG PREVIOUS TRACING : 03/15/2018 05.37 Since the previous tracing, no significant change noted DOCTOR: Enoc Doty Interpretating Date/Time 03/17/2018 16:27:17
[2018-03-18] MEDS ORDERED: Isosorbide Mononitrate 30 MG ER 24HR Tablet (Imdur) PO SCH (07:00)
== END 2018-03-17 11:48 | disposition home or self-care (01) ==
LOC: PH3 21:52 → PHEDDLT 21:52 → NEPHCDU 03-15 10:25 → HCIS 03-16 13:01
PROVIDERS: ADMIT Hospitalist; ATTEND Hospitalist